=== PATIENT | female | born 1950 | race Caucasian/White ===

== ENCOUNTER 2022-08-18 12:50 | Emergency (ER) | payer MEDICARE, BC | END 2022-08-18 15:20 | disposition home or self-care (01) | LOC: ERS 12:50 | DX: S60.222A Contusion of left hand, initial encounter (principal); I10 Essential (primary) hypertension; E78.00 Pure hypercholesterolemia, unspecified; W23.0XXA Caught, crushed, jammed, or pinched between moving objects, initial encounter; Z79.899 Other long term (current) drug therapy; Z87.891 Personal history of nicotine dependence ==